=== PATIENT | male | born 1965 | race Caucasian/White ===

== ENCOUNTER 2019-11-19 06:53 | Emergency (ER) | payer BC, SELFPAY ==
--- NOTE | ~2019-11-19 | XR_ITS ---
EXAMINATION: XR chest 2V DATE: 11/19/2019 08:19 INDICATION: Heart palpitations, congestion TECHNIQUE: PA and lateral views of the chest are obtained. COMPARISON: None available FINDINGS: Airspace opacity is present in the left lower lobe. There is no pleural effusion or pneumot horax. The cardiomediastinal silhouette is normal. There is mild thoracic spondylosis. IMPRESSION: 1. Left lower lobe airspace opacity which may be infectious or inflammatory however, malignancy could have a similar appearance. Recommend followup radiographs in 10-14 days after appropriate therapy to evaluate for improvement/resolution. Reviewed, dictated and finalized at location B. IMPRESSION: 1. Left lower lobe airspace opacity which may be infectious or inflammatory how ever, malignancy could have a similar appearance. Recommend followup radiograph s in 10-14 days after appropriate therapy to evaluate for improvement/resolutio n.
[2019-11-19 06:58] VITALS: BP 144/94; PULSE 98; RESP 18; TEMP 35.6; O2SAT 99
[2019-11-19 07:25] VITALS: BP 150/88; PULSE 104; RESP 14; O2SAT 99
--- NOTE | 2019-11-19 07:31 | ED.GENADULT ---
HPI - General Adult General Chief complaint: Unspecified Stated complaint: HI HR, CLAMMY, CONGESTED Time Seen by Provider: 11/19/19 07:11 Source: patient Mode of arrival: ambulatory Limitations: no limitations History of Present Illness HPI narrative: Patient is a 54-year-old male with a history of ulcerative colitis who presents for evaluation of general malaise, congestion and palpitations. Patient states that he has had symptoms for over 48 hours, they are intermittent in nature. He denies any current chest pain or shortness of breath. He denies fever chills. He reports sinus congestion and drainage. He denies sore throat, loss of sense of taste or smell. No recent sick contacts. Patient reports palpitations that seem to occur sporadically and he reports feeling like his hands are clammy. Patient denies history of anxiety. He reports he has tried Claritin and Sudafed without much improvement in his symptoms. Related Data Home Medications Medication Instructions Recorded Confirmed mesalamine GA 11/19/19 Allergies Allergy/AdvReac Type Severity Reaction Status Date / Time No Known Allergies Allergy Unverified 11/19/19 07:13 Review of Systems Review of Systems: Narrative: CONSTITUTIONAL: Denies fever, chills, or sweats. EYES: Denies visual changes ENT: Reports rhinorrhea and congestion, denies sore throat, or otalgia. CARDIOVASCULAR: Denies chest pain, palpitations, or edema. RESPIRATORY: Denies cough or dyspnea. GASTROINTESTINAL: Denies abdominal pain, nausea, vomiting, or diarrhea. GENITOURINARY: Denies dysuria or hematuria. SKIN: Denies rash or itching. Reports hands are clammy. MUSCULOSKELETAL: Denies back pain, joint pain, or myalgia. NEUROLOGIC: Denies headache, numbness, or weakness. Reports general malaise. PSYCHIATRIC: Denies anxiety or depression. [facility] Past Medical History Medical History (Updated 11/19/19 @ 10:25 by Christine Herbert MD) Skin cancer Ulcerative colitis Social History Social History (Updated 11/19/19 @ 08:03 by Christine Hrebert MD) Smoking status: Never smoker Substance use: never Gender identity (if verbalized by the patient): Male Exam Narrative: Exam Narrative: GENERAL: Awake, alert, conversant HEAD: Normocephalic, atraumatic. EYES: PERRLA and EOMI. ENT: Nares clear, patient with rhinorrhea. No epistaxis. Mucous membranes moist. Uvula is midline. Hard palate is unremarkable, no erythema, no petechiae, no exudate. NECK: Supple. CHEST: No respiratory distress, breathing even and non labored HEART: Regular rate, sinus rhythm ABDOMEN:Non distended, non tender EXTREMITIES: Normal range of motion. No edema. SKIN: Warm, dry, no rash. NEURO:No focal deficits. Alert and oriented x3 Course Vital Signs Vital signs: Vital Signs Temperature 35.6 C L 11/19/19 06:58 Pulse Rate 98 11/19/19 06:58 Respiratory Rate 18 11/19/19 06:58 Blood Pressure 144/94 H 11/19/19 06:58 Pulse Oximetry 99 11/19/19 06:58 Temperature 35.6 C L 11/19/19 06:58 Pulse Rate 77 11/19/19 09:53 Respiratory Rate 18 11/19/19 09:53 Blood Pressure 130/79 11/19/19 09:53 Pulse Oximetry 97 11/19/19 09:53 Medical Decision Making MDM Narrative Medical decision making narrative: Patient presenting for evaluation of congestion, general malaise. At the time of assessment, ABCs are intact and vital signs are stable. Physical exam notable for well-appearing patient, no respiratory distress, no focal pain. IV access obtained and labs are drawn. Laboratory results notable for lymphopenia, evidence of left lower lobe pneumonia on chest x-ray. Patient with mild elevation in bilirubin which may be secondary to dehydration, given no abdominal pain, no findings consistent of acute cholecystitis, evidence of hyperbilirubinemia on exam, I believe this can be also followed outpatient. Given congestion, presence of COVID in the community, this patient will be swabbed, I spoke with
--- NOTE | 2019-11-19 07:59 | ECG_ITS ---
Measurements Intervals [place] Rate: 80 P: 18 CO: 135 QRS: 22 QRSD: 106 T: 32 QT: 347 QTc: 403 Interpretive Statements SINUS RHYTHM WITH SINUS ARRHYTHMIA MINIMAL Q WAVES- HIGH LATERAL LEADS BORDERLINE ECG Electronically Signed On 11-19-2019 8:12:49 CDT by Blayne Platt D.O.
[2019-11-19 08:12] VITALS: PULSE 80
[2019-11-19] MEDS: SODIUM CHLORIDE 0.9% IV 500 ML 999 ML IV CONT (08:28)
[2019-11-19 08:31] LABS: Basophils Absolute Auto 0.1 K/mm3 (0.0-0.1); Basophils Percent Auto 0.6 % (0.2-1.2); Eosinophils Absolute Auto 0.1 K/mm3 (0-0.3); Eosinophils Percent Auto 0.8 % (0-4.4); Hematocrit 48.2 % (42.0-52.0); Hemoglobin 16.3 g/dL (14.0-18.0); Immature Granulocyte Absolute 0.03 K/mm3 (0.00-0.031); Immature Granulocyte Percent A 0.4 % (0-0.5); Mean Corpuscular HGB Conc 33.8 g/dl (32-36); Mean Corpuscular Hemoglobin 30.6 pg (26-34); Mean Corpuscular Volume 90.4 fl (80-100); Mean Platelet Volume 10.5 fl (7.4-10.4); Monocytes Absolute Auto 0.5 K/mm3 (0.1-0.6); Monocytes Percent Auto 5.4 % (2.6-8.5); Neutrophils Absolute Auto 6.7 K/mm3 (1.3-6.7); Neutrophils Percent Auto 78.8 % (45.5-73.1); Platelet Count Result 260 k/mm3 (150-375); Red Blood Count 5.33 M/mm3 (4.6-6.20); Red Cell Distribution Width 13.1 % (11.5-14.5); White Blood Count 8.6 K/mm3 (4.5-10.0)
[2019-11-19 08:41] LABS: Prothrombin Time 12.6 Seconds (11.1-14.7)
[2019-11-19 08:44] LABS: Alanine Aminotransferase 20 U/L (4-50); Albumin Level 4.2 g/dL (3.5-5.1); Alkaline Phosphatase 82 U/L (38-126); Anion Gap 6 mmol/L (8-16); Aspartate Amino Transferase 21 U/L (17-59); Bilirubin,Total 1.7 mg/dL (0.2-1.3); Blood Urea Nitrogen 9 mg/dL (9-20); Carbon Dioxide 26 mmol/L (22-30); Chloride 102 mmol/L (98-107); Estimated CRCL calculation 99 ml/min; Estimated Glomerular Filt Rate > 60; Glucose 108 mg/dL (75-110); Potassium 3.7 mmol/L (3.4-5.0); Sodium 134 mmol/L (137-145)
[2019-11-19 08:53] LABS: NT Pro B Type Natriuretic Pept 36 PG/ML (5-100)
[2019-11-19 08:54] LABS: Troponin I < 0.012 ng/mL (0.000-0.034)
[2019-11-19 08:57] LABS: D Dimer 0.24 ug/mL (<0.48)
[2019-11-19 09:53] VITALS: BP 130/79; PULSE 77; RESP 18; O2SAT 97
[2019-11-19 11:08] VITALS: BP 135/95; PULSE 83; RESP 16; O2SAT 96
[2019-11-19 23:10] LABS: SARS-CoV-2 RNA PCR Negative
== END 2019-11-19 11:10 | disposition home or self-care (01) ==
PROVIDERS: Emergency Provider Emergency Medicine
DX: R09.81 Nasal congestion (principal); J18.9 Pneumonia, unspecified organism; Z20.828 Contact with and (suspected) exposure to other viral communicable diseases
CPT/HCPCS: 36415; 71046; 80053; 83880; 84443; 84484; 85025; 85380; 85610; 85730; 87635; 93005; 96360; 99284; C9803; J7040; U0003

== ENCOUNTER 2019-12-03 09:17 | Outpatient (CLI) | payer BC, SELFPAY ==
--- NOTE | 2019-12-03 09:25 | EST_ITS ---
Patient Info Name: Kaiser Jordan Age: 54 years : 1965 Gender: Male Technical Quality: Good Exam Date: 12/03/2019 9:45 AM Exam Location: [facility] Stress Patient Status: Outpatient Admit Date: 12/03/2019 Staff Ordering Physician: Osman Rowan MD Attending Provider: Osman Rowan MD Exercise Technologist: Mo Blanchard RDCS, RT Exercise Physician: Blayne Platt DO Exam Type: CA stress test treadmill Study Info A regadenoson stress test was performed. Summary 1. 1. Negative Vin exercise stress test for ischemic ST changes by ECG criteria. 2. 2. Good functional capacity, achieving 10 METs of workload. 3. 3. Baseline hypertension. 4. 4. Appropriate HR response to exercise. 5. 5. Appropriate HR recovery at 1 minute post exercise. 6. 6. No imaging with stress testing. 7. 7. Patient informed of the above results. Protocol: Vin Stress ECG Details Stage: REST Duration (min): 0 min : 44 sec Speed (mph): 0.0 Grade (%): 0 HR (bpm): 73 SBP (mmHg): 141 DBP (mmHg): 99 METS: --- Stage: REST Duration (min): 12 min : 4 sec Speed (mph): 0.0 Grade (%): 0 HR (bpm): 81 SBP (mmHg): 141 DBP (mmHg): 99 METS: --- Stage: STAGE 1 Duration (min): 1 min : 0 sec Speed (mph): 1.7 Grade (%): 10 HR (bpm): 110 SBP (mmHg): 141 DBP (mmHg): 99 METS: --- Stage: STAGE 1 Duration (min): 2 min : 0 sec Speed (mph): 1.7 Grade (%): 10 HR (bpm): 108 SBP (mmHg): 141 DBP (mmHg): 99 METS: --- Stage: STAGE 1 Duration (min): 3 min : 0 sec Speed (mph): 1.7 Grade (%): 10 HR (bpm): 112 SBP (mmHg): 173 DBP (mmHg): 87 METS: --- Stage: STAGE 2 Duration (min): 1 min : 0 sec Speed (mph): 2.5 Grade (%): 12 HR (bpm): 122 SBP (mmHg): 173 DBP (mmHg): 87 METS: --- Stage: STAGE 2 Duration (min): 2 min : 0 sec Speed (mph): 2.5 Grade (%): 12 HR (bpm): 128 SBP (mmHg): 175 DBP (mmHg): 83 METS: --- Stage: STAGE 2 Duration (min): 3 min : 0 sec Speed (mph): 2.5 Grade (%): 12 HR (bpm): 130 SBP (mmHg): 175 DBP (mmHg): 83 METS: --- Stage: STAGE 3 Duration (min): 1 min : 0 sec Speed (mph): 3.4 Grade (%): 14 HR (bpm): 145 SBP (mmHg): 187 DBP (mmHg): 81 METS: --- Stage: STAGE 1 Duration (min): 3 min : 0 sec Speed (mph): 1.7 Grade (%): 10 HR (bpm): 112 SBP (mmHg): 173 DBP (mmHg): 87 METS: --- Stage: STAGE 2 Duration (min): 3 min : 0 sec Speed (mph): 2.5 Grade (%): 12 HR (bpm): 130 SBP (mmHg): 175 DBP (mmHg): 83 METS: --- Stage: STAGE 3 Duration (min): 2 min : 0 sec Speed (mph): 3.4 Grade (%): 14 HR (bpm): 155 SBP (mmHg): 187 DBP (mmHg): 81 METS: --- Stage: RECOVERY Duration (min): 1 min : 0 sec Speed (mph): 0.0 Grade (%): 0 HR (bpm):
== END 2019-12-03 09:18 | disposition home or self-care (01) ==
LOC: ANHCARD 09:18
PROVIDERS: PCP Family Medicine; Visit Provider Family Medicine
DX: R00.2 Palpitations (principal)
CPT/HCPCS: 93017

== ENCOUNTER 2020-01-11 09:08 | Outpatient (CLI) | payer BC, SELFPAY ==
--- NOTE | ~2020-01-11 | CT_ITS ---
EXAMINATION: CT chest wo con DATE: 01/11/2020 09:34 INDICATION: Abnormal left lower lobe opacity on chest radiograph TECHNIQUE: Computed tomography (CT) of the chest was performed without intravenous contrast. The dose -length product (DLP) was 382.88 mGy-cm. Automated exposure control and iterative reconstruction tech nique were employed. COMPARISON: 11/19/2019 FINDINGS: The lungs are free of acute opacities. The left lower lobe opacity described on comparison radiograph is no longer evident, consistent with resolved infection/inflammation. No pathologically e nlarged thoracic lymph nodes are identified. The heart size is normal. There is no pleural effusion o r pneumothorax. Bilateral low-density lesions of the adrenal glands are consistent with adrenal adeno mas. There is mild thoracic spondylosis. IMPRESSION: 1. No acute cardiopulmonary abnormality. No suspicious lung findings Reviewed, dictated and finalized at location A. 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
== END 2020-01-11 09:09 | disposition home or self-care (01) ==
PROVIDERS: PCP Family Medicine; Visit Provider Family Medicine
DX: R91.8 Other nonspecific abnormal finding of lung field (principal)
CPT/HCPCS: 71250

== ENCOUNTER 2020-01-18 15:35 | Outpatient (CLI) | payer BC, SELFPAY ==
--- NOTE | 2020-01-31 12:16 | WPDHOLTEREM ---
Holter/Event Monitor Holter/Event Monitor Date of procedure: 01/18/20 Procedure Type: 24 hour holter monitor Indications: Palpitations Conclusion: 1. 24 hour holter monitor on 01/18/20. 2. Predominant rhythm is sinus rhythm. HR range 51-160 bpm; average HR 81 bpm. 3. There are 118 premature supraventricular complexes and 3 supraventricular couplets. There are 4 short runs of atrial tachycardia, fastest at 167 bpm and longest lasting 6 beats. 4. There is one premature ventricular complex. No ventricular tachycardia. 5. No sinoatrial or atrioventricular blocks. No significant pauses greater than 2 seconds. 6. Patient reports heart beat fast and hard and hands/feet sweating which demonstrate Sinus rhythm, HR range 70-83 bpm.
== END 2020-01-18 15:36 | disposition home or self-care (01) ==
LOC: ANHCARD 15:35
PROVIDERS: PCP Family Medicine; Visit Provider Family Medicine
DX: R00.2 Palpitations (principal)
CPT/HCPCS: 93225; 93226

== ENCOUNTER 2020-07-03 09:12 | Outpatient (CLI) | payer BC, SELFPAY ==
--- NOTE | 2020-07-17 13:58 | WPDHOMESLEEP ---
Sleep Study - Home Unattended Date of Study: 07/03/20 Ordering Provider: Josh Agee MD Interpreting Provider: Jessica Loya MD Home Sleep Study Type: Apnea Link Air Height: 1.83 m Weight: 102.058 kg Body Mass Index: 30.5 Neck Circumference (inches): 16.75 [place]: 2 Reason for Sleep Study Snoring, palpitations history of hypertension Sleep History Kaiser Jordan is a 54-year-old man who has complaints of palpitations. He has been evaluated and has improved on metoprolol. 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 He had an episode of dizziness and lightheadedness which he attributes to his metoprolol. His mouth becomes dry as he is falling asleep. He occasionally snores and occasionally it is loud enough that others complain about it. He does not awaken from sleep feeling short of breath. He does not awaken at night with heartburn, belching or coughing. He rarely has trouble sleeping with a cold. He does not wake up gasping for breath at night. He does not have breathing problems at night observed by others. He occasionally sweats excessively at night. He frequently notices his heart pounding or beating irregularly at night. He does not fall asleep during the day, does not fall asleep involuntarily or while driving. He does not have loss of muscle tone was strong emotion. He does not have daytime difficulties due to excessive sleepiness. 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 He does not feel paralyzed on waking or falling asleep rarely has vivid dreamlike scenes upon awakening or falling asleep and does not feel afraid to go to sleep. He does not have nightmares. He rarely remembers his dreams. He occasionally has racing thoughts. He does not feel sad or depressed. On occasion he has anxiety. He occasionally has muscular tension. He rarely notices parts of his body jerking. He does not kick at night or have crawling and aching feelings in his legs. He rarely has any kind of leg pain at night. He does not have morning jaw pain. He does not grind his teeth during sleep, is not bothered by pain during the day and is not awakened by pain at night. He does not wake up feeling stiff the morning. He rarely wakes up with sore or achy muscles. He does not wake up with pain in the neck and spine. He has memory problems and feels panicky at times. Normal bedtime is between 8 and 9:00 p.m. taking 15-30 minutes to fall asleep typically waking 2-3 times at night to urinate. He wakes in the morning between 4 and 5:00 a.m.. He estimates getting 6-7 hours of sleep at night. He does not generally take naps. A short nap is not applicable as he does not take naps. Most of the time he feels good in the morning. He feels better in the evening compared to the morning. He frequently wakes up feeling refreshed however also frequently has memory or concentration problems Habits: Never smoked tobacco. No caffeine alcohol or recreational drugs. [facility] Past Medical History Medical History (Updated 07/17/20 @ 14:00 by Jessica Loya MD) Abnormal chest x-ray Abnormal fasting glucose Acute non-recurrent maxillary sinusitis Adrenal adenoma Basal cell carcinoma (BCC) Chronic anxiety Crohn's disease Encounter for prostate cancer screening Encounter for screening for other viral diseases Essential (primary) hypertension Palpitation Seasonal allergic rhinitis Skin cancer (~2012) Tinnitus Ulcerative colitis Ulcerative colitis Uveitis Vitamin B12 deficiency anemia Family History Family History (Updated 11/25/19 @ 11:03 by Nesha Brandon MA) Mother COPD (chronic obstructive pulmonary disease) Father Cerebrovascular accident Heart disease Social History Social History Smoking status: Never smoker Alcohol intake: never Substance use: never Gender identity (if verbalized by the patient): Male
[2020-07-17 14:09] VITALS: BMI 30.5
== END 2020-07-03 09:13 | disposition home or self-care (01) ==
LOC: ANHCSM 09:13
PROVIDERS: PCP Family Medicine; Visit Provider Internal Medicine Cardiovascular Disease
DX: G47.10 Hypersomnia, unspecified (principal); R53.83 Other fatigue; R06.83 Snoring; R40.0 Somnolence
CPT/HCPCS: 95806

== ENCOUNTER 2020-08-25 06:48 | Outpatient (CLI) | payer BC, SELFPAY ==
--- NOTE | ~2020-08-25 | MR_ITS ---
EXAMINATION: MR brain/brain stem wo con EXAM DATE: 08/25/2020 07:57 INDICATION: R27.0 - Ataxia, unspecified. Dizziness for months. TECHNIQUE: Magnetic resonance imaging (MRI) of the brain/brain stem obtained without contrast. Magalyitt al T1, axial diffusion, gradient echo (T2*), T1, T2, FLAIR sequences obtained. There is no prior st udy for comparison. FINDINGS: There are no areas of restricted diffusion to suggest acute infarction. There is no acute hemorrhage seen on the T2*, a hemosiderin sensitive sequence. No intraparenchymal brain mass. The ve ntricles are normal in size. There are no extra-axial collections. Flow voids are seen in the cereb ral arteries on the T2-weighted sequences consistent with their expected patency. The orbits are unr emarkable. Soft tissue is unremarkable. Mild to moderate ethmoid and maxillary sinus mucoperiostea l thickening. IMPRESSION: 1. No acute intracranial findings. 2. Mild to moderate mucoperiosteal thickening. No mastoid opacity. Reviewed, dictated and finalized at location B.
== END 2020-08-25 06:49 | disposition home or self-care (01) ==
LOC: ANHIMG 06:49
PROVIDERS: PCP Family Medicine; Visit Provider Family Medicine
DX: G47.31 Primary central sleep apnea (principal); R27.0 Ataxia, unspecified
CPT/HCPCS: 70551

== ENCOUNTER 2020-09-25 08:34 | Outpatient (CLI) | payer BC, SELFPAY ==
--- NOTE | ~2020-09-25 | CT_ITS ---
EXAMINATION: CT sinus wo con DATE: 09/25/2020 08:58 INDICATION: Nasal polyp. Sinusitis. TECHNIQUE: Computed tomography (CT) of the paranasal sinuses was performed without contrast. Iterativ e reconstruction technique was employed. Exam dose: 286.08 mGy-cm total exam DLP. COMPARISON: None FINDINGS: There is prominent rightward deviation of the nasal septum. Partially opacified prominent dax bullosa of left middle nasal turbinate. There is partial soft tissue opacification of the infundibulum on each side. There is nodular soft tissue thickening both maxillary sinuses, predominating in the lower portions, left greater than right. There is patchy septal soft tissue thickening of the ethmoid air cells. There is minimal inferior mucoperiosteal thickening of the right sphenoid sinus. The frontal and left sphenoid sinuses are clear. The mastoid air cells are normally developed and aerated. IMPRESSION: Prominent rightward deviation of nasal septum Prominent partially opacified dax bullosa of left middle nasal turbinate Partial opacification of left and right infundibulum Polypoid soft tissue thickening in the maxillary sinuses and minimal inferior mucoperiosteal thickeni ng of right sphenoid sinus Reviewed, dictated and finalized at Location A. Reviewed, dictated and finalized at location A. IMPRESSION: Prominent rightward deviation of nasal septum Prominent partially opacified dax bullosa of left middle nasal turbinate Partial opacification of left and right infundibulum Polypoid soft tissue thickening in the maxillary sinuses and minimal inferior m ucoperiosteal thickening of right sphenoid sinus
== END 2020-09-25 08:35 | disposition home or self-care (01) ==
LOC: ANHIMG 08:38
PROVIDERS: PCP Family Medicine; Visit Provider Otolaryngology
DX: J32.9 Chronic sinusitis, unspecified (principal); J34.2 Deviated nasal septum; J34.89 Other specified disorders of nose and nasal sinuses; R09.81 Nasal congestion; R44.8 Other symptoms and signs involving general sensations and perceptions
CPT/HCPCS: 70486

== ENCOUNTER 2021-01-19 14:36 | Outpatient (CLI) | payer BC, SELFPAY ==
--- NOTE | 2021-01-19 15:00 | ECHO_ITS ---
Patient Info Name: Kaiser Jordan Age: 55 years : 1965 Gender: Male Ht: 72 in Wt: 230 lbs BSA: 2.33 m2 HR: 72 bpm BP: 151 / 95 mmHg Technical Quality: Fair Exam Date: 01/19/2021 4:13 PM Exam Location: [facility] Patient Status: Outpatient Admit Date: 01/19/2021 Staff Ordering Physician: Osman Rowan MD Space Technologist: Evelyn Negrete RDCS Attending Provider: Osman Rowan MD Referring Physician: Harpal STRONG; Exam Type: CA echo doppler color flow Study Info Indications - sleep apnea Complete two-dimensional, color flow and Doppler transthoracic echocardiogram is performed. Summary 1. Complete two-dimensional, color flow and Doppler transthoracic echocardiogram is performed. 2. Left ventricular chamber dimension is normal. 3. Left ventricular systolic function is normal, estimated at 60-65%. 4. The left ventricular diastolic function is grade II diastolic dysfunction. 5. E/e' 8 is minimally elevated. 6. There is trace mitral valve regurgitation. 7. There is trace tricuspid valve regurgitation. 8. No pulmonary hypertension, estimated pulmonary arterial systolic pressure is 28 mmHg. Left Ventricle E/e' 8 is minimally elevated. Left ventricular chamber dimension is normal. Left ventricular systolic function is normal, estimated at 60-65%. The left ventricular diastolic function is grade II diastolic dysfunction. Right Ventricle Right ventricular chamber dimension is normal. Right ventricular systolic function is normal. Left Atria Left atrial chamber dimension is normal. Right Atria Right atrial chamber dimension is normal. Aortic Valve The aortic valve is trileaflet. There is no aortic valve stenosis. There is no aortic valve regurgitation. Pulmonic Valve There is no pulmonic regurgitation. Mitral Valve There is no mitral valve stenosis. There is trace mitral valve regurgitation. Tricuspid Valve There is trace tricuspid valve regurgitation. No pulmonary hypertension, estimated pulmonary arterial systolic pressure is 28 mmHg. Pericardium/Pleural There is no pericardial effusion. Inferior Vena Cava Normal inferior vena cava with >50% collapse upon inspiration consistent with normal right atrial pressure, 5 mmHg. Aorta The aortic root size at the sinus of Valsalva is normal. Left Ventricular Outflow Tract Name Value Normal LVOT 2D LVOT Diameter 2.1 cm LVOT Doppler LVOT Peak Gradient 7 mmHg LVOT Mean Gradient 3 mmHg LVOT VTI 23 cm LVOT VTI/AV VTI Ratio 0.8 LVOT Stroke Volume 81 ml LVOT CO 17.5 l/min LVOT CI 7.5 l/min/m2 Pulmonic Valve Name Value Normal PV Doppler
== END 2021-01-19 14:37 | disposition home or self-care (01) ==
PROVIDERS: PCP Family Medicine; Visit Provider Family Medicine
DX: G47.31 Primary central sleep apnea (principal)
CPT/HCPCS: 93306

== ENCOUNTER → 2021-01-23 02:36 | Outpatient (CLI) | payer BC, SELFPAY ==
[2021-01-23 19:35] LABS: SARS-CoV-2 RNA PCR Negative
== END ==
PROVIDERS: PCP Family Medicine; Visit Provider Family Medicine
DX: R68.89 Other general symptoms and signs (principal); Z20.822 Contact with and (suspected) exposure to COVID-19
CPT/HCPCS: C9803; U0003; U0005

== ENCOUNTER 2021-01-26 07:38 | Outpatient (CLI) | payer BC, SELFPAY ==
--- NOTE | 2021-02-25 12:33 | WPDSLEEPSTUD ---
Sleep Study Date of Study: 01/26/21 Ordering Provider: Osman Rowan MD Interpreting Physician: Jessica Loya MD Sleep Study Type: Polysomnogram Height: 1.83 m Weight: 106.594 kg Body Mass Index: 31.8 Neck Circumference (inches): 17.5 [place]: 1 Reason for Sleep Study Poor quality sleep *Home sleep test using [facility] on July 03, 2020 with moderate obstructive sleep apnea with an AHI of 24.4, desaturated to 87% and had snoring for about a 3rd of the night; more central apneas 56% compared to obstructive apneas comprising 44%. Because he has a majority of his apneas meeting criteria as centrals, he is not a candidate for auto Pap. Sleep History Kaiser Jordan is a 55 year old man with snoring palpitations and hypertension. He had a home sleep test on 07/03/2020 showing moderate central sleep apnea with a majority of apneas scored as centrals. He returned for a CPAP titration however hada split night study performed. He was referred by Dr Agee, his housekeeping aide, for a sleep test to see if sleep apnea could be a factor. He had an episode of dizziness and lightheadedness which he attributes to his metoprolol. His mouth becomes dry as he is falling asleep. He occasionally snores and occasionally it is loud enough that others complain about it. He does not awaken from sleep feeling short of breath. He does not awaken at night with heartburn, belching or coughing. He rarely has trouble sleeping with a cold. He does not wake up gasping for breath at night. He does not have breathing problems at night observed by others. He occasionally sweats excessively at night. He frequently notices his heart pounding or beating irregularly at night. He does not fall asleep during the day, does not fall asleep involuntarily or while driving. He does not have loss of muscle tone was strong emotion. He does not have daytime difficulties due to excessive sleepiness. 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 He does not feel paralyzed on waking or falling asleep rarely has vivid dreamlike scenes upon awakening or falling asleep and does not feel afraid to go to sleep. He does not have nightmares. He rarely remembers his dreams. He occasionally has racing thoughts. He does not feel sad or depressed. On occasion he has anxiety. He occasionally has muscular tension. He rarely notices parts of his body jerking. He does not kick at night or have crawling and aching feelings in his legs. He rarely has any kind of leg pain at night. He does not have morning jaw pain. He does not grind his teeth during sleep, is not bothered by pain during the day and is not awakened by pain at night. He does not wake up feeling stiff the morning. He rarely wakes up with sore or achy muscles. He does not wake up with pain in the neck and spine. He has memory problems and feels panicky at times. Normal bedtime is between 8 and 9:00 p.m. taking 15-30 minutes to fall asleep typically waking 2-3 times at night to urinate. He wakes in the morning between 4 and 5:00 a.m.. He estimates getting 6-7 hours of sleep at night. He does not generally take naps. A short nap is not applicable as he does not take naps. Most of the time he feels good in the morning. He feels better in the evening compared to the morning. He frequently wakes up feeling refreshed however also frequently has memory or concentration problems Habits: Never smoked tobacco. No caffeine alcohol or recreational drugs. [facility] Past Medical History Medical History (Updated 02/25/21 @ 14:30 by Jessica Loya MD) Abnormal chest x-ray Abnormal fasting glucose Acute non-recurrent maxillary sinusitis Adrenal adenoma Ataxia Normal MRI of the brain on 08/25/2020 except for sinus inflammation Basal cell carcinoma (BCC) BMI 31.0-31.9,adult Central sleep apnea (07/03/20) Chronic anxiety Crohn's disease Encounter for prostate cancer screening Encounter for screening for other viral diseases Essential (primary) hypertension
[2021-02-26 16:56] VITALS: BMI 31.8
== END 2021-01-27 05:13 | disposition home or self-care (01) ==
LOC: ANHCSM 07:39
PROVIDERS: PCP Family Medicine; Visit Provider Family Medicine
DX: G47.33 Obstructive sleep apnea (adult) (pediatric) (principal)
CPT/HCPCS: 95810

== ENCOUNTER → 2021-03-07 02:21 | Outpatient (CLI) | payer BC, SELFPAY ==
[2021-03-08 02:22] LABS: SARS-CoV-2 RNA PCR Negative
== END ==
PROVIDERS: PCP Family Medicine; Visit Provider Internal Medicine Critical Care Medicine
DX: R68.89 Other general symptoms and signs (principal); Z20.822 Contact with and (suspected) exposure to COVID-19
CPT/HCPCS: C9803; U0003; U0005

== ENCOUNTER 2021-03-08 08:11 | Outpatient (CLI) | payer BC, SELFPAY ==
--- NOTE | 2021-03-13 14:36 | WPDSLEEPSTUD ---
Sleep Study Date of Study: 03/08/21 <Mary Sage DO - Last Filed: 03/13/21 14:51> Ordering Provider: Osman Rowan MD <Mary Sage - Last Filed: 03/13/21 14:51> Interpreting Physician: Mary Sage DO <Mary Sage DO - Last Filed: 03/13/21 14:51> Height: 1.83 m <Mary Sage DO - Last Filed: 03/13/21 14:51> Weight: 106.633 kg <Mary Sage DO - Last Filed: 03/13/21 14:51> Body Mass Index: 31.8 <Mary Sage DO - Last Filed: 03/13/21 14:51> Neck Circumference (inches): 17.5 <Mary Sage DO - Last Filed: 03/13/21 14:51> Belcher: 1 <Mary Sage DO - Last Filed: 03/13/21 14:51> Reason for Sleep Study The patient had a nocturnal polysomnogram on 01/26/2021 shows severe obstructive sleep apnea with an AHI of 31.1, obstructive index 28.2, central index 2.4. The supine index is 78.8 nonsupine index 13.7. <Mary Sage DO - Last Filed: 03/13/21 14:51> Sleep History Kaiser Jordan is a 55 year old man with snoring palpitations and hypertension. He had a home sleep test on 07/03/2020 showing moderate central sleep apnea with a majority of apneas scored as centrals. He returned for a CPAP titration however hada split night study performed. He was referred by Dr Agee, his vp outcomes, for a sleep test to see if sleep apnea could be a factor. He had an episode of dizziness and lightheadedness which he attributes to his metoprolol. His mouth becomes dry as he is falling asleep. He occasionally snores and occasionally it is loud enough that others complain about it. He does not awaken from sleep feeling short of breath. He does not awaken at night with heartburn, belching or coughing. He rarely has trouble sleeping with a cold. He does not wake up gasping for breath at night. He does not have breathing problems at night observed by others. He occasionally sweats excessively at night. He frequently notices his heart pounding or beating irregularly at night. He does not fall asleep during the day, does not fall asleep involuntarily or while driving. He does not have loss of muscle tone was strong emotion. He does not have daytime difficulties due to excessive sleepiness. 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 He does not feel paralyzed on waking or falling asleep rarely has vivid dreamlike scenes upon awakening or falling asleep and does not feel afraid to go to sleep. He does not have nightmares. He rarely remembers his dreams. He occasionally has racing thoughts. He does not feel sad or depressed. On occasion he has anxiety. He occasionally has muscular tension. He rarely notices parts of his body jerking. He does not kick at night or have crawling and aching feelings in his legs. He rarely has any kind of leg pain at night. He does not have morning jaw pain. He does not grind his teeth during sleep, is not bothered by pain during the day and is not awakened by pain at night. He does not wake up feeling stiff the morning. He rarely wakes up with sore or achy muscles. He does not wake up with pain in the neck and spine. He has memory problems and feels panicky at times. Normal bedtime is between 8 and 9:00 p.m. taking 15-30 minutes to fall asleep typically waking 2-3 times at night to urinate. He wakes in the morning between 4 and 5:00 a.m.. He estimates getting 6-7 hours of sleep at night. He does not generally take naps. A short nap is not applicable as he does not take naps. Most of the time he feels good in the morning. He feels better in the evening compared to the morning. He frequently wakes up feeling refreshed however also frequently has memory or concentration problems Habits: Never smoked tobacco. No caffeine alcohol or recreational drugs. <Mary Sage DO - Last Filed: 03/13/21 14:51> [facility] Past Medical History Medical History: Medical History (Updated 02/26/21 @ 17:31
[2021-03-13 14:37] VITALS: BMI 31.8
== END 2021-03-09 06:45 | disposition home or self-care (01) ==
LOC: ANHCSM 08:11
PROVIDERS: PCP Family Medicine; Visit Provider Family Medicine
DX: G47.33 Obstructive sleep apnea (adult) (pediatric) (principal)
CPT/HCPCS: 95811